=== PATIENT | female | born 2000 | race Caucasian/White ===

== ENCOUNTER 2019-12-25 18:56 | Emergency (ER) | payer MEDICAID, OTHER ==
[~2019-12-25] VITALS: Ht 160 cm; Wt 77.6 kg
[~2019-12-25 18:56] MED LIST: DIPH25CA; [UNRECOGNIZED DRUG - CODE]
[2019-12-25 19:01] VITALS: BP 125/86
--- NOTE | 2019-12-25 19:05 | NUR ---
PT AMBULATED TO BED 11 WITH STEADY GAIT.
--- NOTE | 2019-12-25 19:09 | NUR ---
RECEIVED REPORT FROM STEVE MEDINA.
--- NOTE | 2019-12-25 19:10 | NUR ---
PT 19 Y/O FEMALE BIB SELF FOR C/O 410 PAIN ON L UPPER THIGH. PT AAOX 4. REDNESS AND SWELLING NOTED. PT STATES," I GOT A BUG BITE." PAIN PROVOKED BY AMBULATION. PT ABLE TO AMBULATE WITH STEADY GAIT. PT DENIES COUGH. PT RESPIRATIONS ARE EVEN AND UNLABORED.SKIN IS WARM AND DRY TO TOUCH. AFEBRILE. DENIES N/V/D. MEDHX: NONE ALLERGIES: PCN
--- NOTE | 2019-12-25 19:11 | NUR ---
SAVAGE DIGGS AT BED SIDE.
[2019-12-25 19:20] VITALS: BP 125/86
--- NOTE | 2019-12-25 19:20 | NUR ---
Patient discharged with v/s stable. Written and verbal after care instructions given and explained. Patient alert, oriented and verbalized understanding of instructions. Ambulatory with steady gait. All questions addressed prior to discharge. ID band removed. Patient advised to follow up with PMD. Rx of BACTRIUM, IBUPROFEN given. Patient educated on indication of medication including possible reaction and side effects. Opportunity to ask questions provided and answered.
== END 2019-12-25 19:20 | disposition home or self-care (01) ==
LOC: MED 18:56
DX: L03.116 Cellulitis of left lower limb (principal); Z88.0 Allergy status to penicillin; Z79.899 Other long term (current) drug therapy
CPT/HCPCS: 99283

== ENCOUNTER 2019-12-27 13:08 | Emergency (ER) | payer MEDICAID ==
[~2019-12-27] VITALS: Ht 160 cm; Wt 81.6 kg
[2019-12-27 13:12] VITALS: BP 111/75
--- NOTE | 2019-12-27 13:15 | NUR ---
PT AMBULATED TO BED
[2019-12-27] MEDS ORDERED: CLINDAMYCIN 150 MG CAP PO ONE (13:30)
[2019-12-27 13:40] VITALS: BP 111/75
--- NOTE | 2019-12-27 13:41 | NUR ---
Patient discharged with v/s stable. Written and verbal after care instructions given and explained. Patient alert, oriented and verbalized understanding of instructions. Ambulatory with steady gait. All questions addressed prior to discharge. ID band removed. Patient advised to follow up with PMD. Rx of clindamycin given. Patient educated on indication of medication including possible reaction and side effects. Opportunity to ask questions provided and answered.
== END 2019-12-27 13:41 | disposition home or self-care (01) ==
LOC: MED 13:08
DX: L03.116 Cellulitis of left lower limb (principal); Z88.0 Allergy status to penicillin; Z79.899 Other long term (current) drug therapy
CPT/HCPCS: 99283

== ENCOUNTER 2019-12-29 19:05 | Emergency (ER) | payer MEDICAID ==
[~2019-12-29] VITALS: Ht 160 cm; Wt 81.6 kg
[2019-12-29 19:47] VITALS: BP 91/65
--- NOTE | 2019-12-29 21:35 | NUR ---
AMBULATED TO BED 02 WITH STEADY GAIT. ACCOMPANIED BY SELF.
--- NOTE | 2019-12-29 22:12 | NUR ---
BIB MOTHER C/O LEFT LEG ABCESS, PT SEEN BY PCP WHO BELIEVED ABCESS WAS CELLULITIS. ERYTHEMA, SWELLING AT AREA. NO WARMTH, DRAINAGE NOTED. PATIENT HAS FULL ROM OF BILAT LOWER EXTREMITIS. CMS+. DENIES N/V/D. NO FEVER/CHILLS NOTED. NO PMH NKA
== END 2019-12-29 23:01 | disposition home or self-care (01) ==
LOC: MED 19:05
DX: L03.116 Cellulitis of left lower limb (principal); Z88.0 Allergy status to penicillin; Z79.899 Other long term (current) drug therapy; Z98.890 Other specified postprocedural states
CPT/HCPCS: 99284